=== PATIENT | male | born 1945 | race Caucasian/White ===

== ENCOUNTER → 2017-04-15 | Outpatient (CLI) | payer MEDICARE, BC ==
[~2017-04-15] MED LIST: ASPIRIN81 M1 PO; ASPIRIN81 MG PO; B6100 MG PO; CARDURA2 MG PO; CIPRO250 MG PO; CYANOCOBALAM1000 MCG PO; DDAVP0.1 MG PO; DEPO-TESTOS200 MG/M1 INJ; DESONIDE15 GM TOP; DOLOMITE PO; FISH OIL 1,0001 CAP PO; FLOMAX0.4 M1 PO; GLUCOSAMINE & C1 CAP PO; HAIR, SKIN & N1 EAC1 PO; HEALTHY EYES OP; HYDROCORTISONE10 M1 PO; LIPITOR40 MG PO; LIPITOR80 MG PO; MOTION SICKNESS25 M4 PO; OCEAN45 ML INH; OMEPRAZOLE20 M2 PO; PERCOCET5/325 PO; PHENERGAN25 MG PO; PREVACID PO; PYRIDIUM100 MG PO; SYNTHROID0.1 MG PO; VITAMIN C500 M1 PO; VITAMIN E400 UNI1 PO; ZOFRAN PO; [UNRECOGNIZED DRUG - CODE] TOP; [UNRECOGNIZED DRUG - OTHER] PO
--- NOTE | ~2017-04-15 | MR113 ---
[facility] A Service of [facility] RADIOLOGY TEXT RESULTS PATIENT: JUAREZ TORRES LOCATION: [facility] : 41 UNIT #: [id number] AGE: [address]: Loyd Gonzalez MD SEX: M ORDER DR: [id number] [place] [id number] O MR#: [id number] Acc #: [id number] NAME: JUAREZ TORRES, : 1945 SEX: M STUDY DATE/TIME: 04/15/2017 10:36 UNIT: [facility] ROOM: STUDY DESCRIPTION: MR Lumbar Wo Contrast Attending Physician: Loyd Gonzalez M.D. Referring Physician: Loyd Gonzalez M.D. Ordering Physician: Loyd Gonzalez M.D. Primary Care Physician: Rickie Gomez M.D. MRI CENTER REPORT This report is preliminary unless electronic signature is present. EXAM MRI of the lumbar spine without contrast dated 04/15/2017. COMPARISON CT abdomen and pelvis without contrast dated 01/27/2010. HISTORY Increased low back pain. Back pain has been going on for 10 years but it is worse this year. Pain started in the left groin and left hip and moved to the lower back. Evaluate for spinal stenosis. FINDINGS Multisequence multiplanar imaging of the lumbar spine was obtained without contrast. Suspicious mild levoscoliosis of the lumbar spine with the apex at L4-5. Minimal subcutaneous edematous changes noted in the lumbosacral posterior soft tissues, incidental mild benign finding. Disc osteophyte complex are noted from L2-3 to L5-S1. Mild bony edematous endplate changes are noted at L3-4 and to a lesser degree at L4-5. Conus terminates at T11-12. Signal of conus and cauda equina are grossly unremarkable. Pre and paravertebral soft tissues do not demonstrate any significant abnormality. L1-2: Moderate disc bulge with small left central protrusion. Bilateral foraminal to extraforaminal broad-based protrusions are noted, worse in the right foraminal region. Mild left and mild to moderate right neural foraminal narrowing are noted. Mild bilateral facet hypertrophic changes are seen with spdp-gx-uyumlhvk canal stenosis. L2-3: Disc osteophyte complex is asymmetrically prominent in the left foraminal to extraforaminal region. Mild bilateral facet hypertrophic changes are noted with left ligamentum flavum thickening, moderate canal stenosis, mild left lateral recess stenosis and mild right, fhjx-ik-eoecxdsg left neural foraminal narrowing. [facility] A Service of [facility] RADIOLOGY TEXT RESULTS PATIENT: JUAREZ TORRES SR LOCATION: [facility] : 41 UNIT #: [id number] AGE: [address]: Loyd Gonzalez MD SEX: M ORDER DR: L3-4: Disc osteophyte complex which is asymmetrically prominent in the left central to right extraforaminal regions suggestive of moderate broad-based protrusion along with an osteophyte. Mild bilateral facet hypertrophic changes are seen. Stuh-lc-jbukxspk left and mild right neural foraminal narrowing are noted with nqpf-rb-plsvniiv right lateral recess stenosis. There is ucxd-ra-tfytmgej canal stenosis and mild bilateral facet changes. Prominent anterolateral epidural fat is noted in the right rvibgyl-hs-vqjjekgvpwhz region extending towards the foraminal region at L4-5. It causes mass effect on the adjacent right anterolateral thecal sac. The fat is not well encapsulated to suggest a mass-like lipoma. It is probably mild epidural lipomatosis. L5-S1: Disc osteophyte complex with mild right facet hypertrophic change and mild bilateral neural foraminal narrowing. IMPRESSION 1. Degenerative changes are noted at multiple levels of the lumbar spine as described above. 2. Findings are slightly worse at L2-3 and L3-4 levels as described above. 3. Suspicious mild levoscoliosis of the lumbar spine with the apex at L4-5. Minimal subcutaneous edematous changes noted in the lumbosacral posterior soft tissues, incidental mild benign finding. 1. 1. Dictated by... Shanika Logan M.D. THIS IS AN ELECTRONICALLY VERIFIED REPORT Shanika Logan M.D. at 04/19/2017 10:47 PM CPR/cmm TD: 04/18/2017 13:48 JOB #: [id number] MRI CENTER REPORT Page 1 of 1
== END | disposition home or self-care (01) ==
LOC: SMRI 09:46
DX: M48.06 Spinal stenosis, lumbar region (principal); M25.552 Pain in left hip
CPT/HCPCS: 72148